=== PATIENT | male | born 1985 | race Caucasian/White ===

== ENCOUNTER 2018-10-02 16:39 | Observation (INO) | payer SELFPAY ==
--- OUTSIDE RECORDS SUMMARY | 2018-10-02 16:42 | XMS REPORT | Clinical Summary ---
:1985 Author Organization [facility] Address [address] [place] [address] Care Team Providers Name Role Phone Asked, No Pcp Primary Care Provider Unavailable Allergies Active Allergy Reactions Severity Noted Date Comments Haloperidol 09/17/2018 Dystonic reaction Medications Medication Sig Dispensed Refills Start Date End Date Status albuterol (PROAIR Inhale 2 puffs 1 Inhaler 0 09/17/2018 Active HFA,PROVENTIL every 4 (four) 8 HFA,VENTOLIN HFA) 90 hours as needed mcg/actuation inhaler for wheezing for up to 30 days. methylPREDNISolone follow package 21 tablet 0 09/17/2018 (MEDROL DOSEPAK) 4 mg directions 8 tablet Active Problems Not on file Encounters Date Type Specialty Care Team Description 09/21/2018 Emergency Emergency Medicine Naila Ríos Speech disturbance, MD Low unspecified type (Primary Dx) 09/17/2018 Emergency Emergency Medicine Inga Russ Chest pain on breathing (Primary Dx); MD Conchis Mild persistent asthma with acute exacerbation after 10/01/2017 Social History Tobacco Use Types Packs/Day Years Used Date Current Every Day Smoker Smokeless Tobacco: Never Used Alcohol Use Drinks/Week oz/Week Comments Yes Sex Assigned at Date Recorded Not on file Job Start Date Occupation Industry Not on file Not on file Not on file Travel History Travel Start Travel End No recent travel history available. Last Filed Vital Signs Vital Sign Reading Time Taken Blood Pressure 164/91 09/21/2018 12:12 PM REFRACTORY MANAGER Pulse 108 09/21/2018 12:12 PM REFRACTORY MANAGER Temperature 37.3 C (99.1 F) 09/21/2018 12:12 PM REFRACTORY MANAGER Respiratory Rate 18 09/21/2018 12:12 PM REFRACTORY MANAGER Oxygen Saturation 99% 09/21/2018 12:12 PM REFRACTORY MANAGER Inhaled Oxygen Concentration - - Weight 77.3 kg (170 lb 5 oz) 09/17/2018 4:07 PM CDT Height 177.8 cm (5' 10") 09/21/2018 12:12 PM REFRACTORY MANAGER Body Mass Index 24.44 09/17/2018 4:07 PM CDT Plan of Treatment Health Maintenance Due Date Last Done Comments MMR VACCINES (1 of 1 - Standard 1988 series) VARICELLA VACCINES (1 of 2 - 2-dose 2000 adolescent series) INFLUENZA VACCINE 06/15/2018 HEPATITIS B VACCINES Aged Out No longer eligible based on patient's age to complete this topic IPV VACCINES Aged Out No longer eligible based on patient's age to complete this topic MENINGOCOCCAL VACCINE Aged Out No longer eligible based on patient's age to complete this topic Procedures Procedure Name Priority Date/Time Associated Comments Diagnosis MRI BRAIN W WO CONTRAST STAT 09/21/2018 2:48 Results for this PM REFRACTORY MANAGER procedure are in the results section. CT STROKE BRAIN WO STAT 09/21/2018 1:33 Results for this CONTRAST PM REFRACTORY MANAGER procedure are in the results section. ESTIMATED GFR STAT 09/21/2018 12:44 Results for this PM REFRACTORY MANAGER procedure are in the results section. ALCOHOL LEVEL, BLOOD STAT 09/21/2018 12:44 Results for this PM REFRACTORY MANAGER procedure are in the results section. URINE DRUGS OF ABUSE STAT 09/21/2018 12:44 Results for this SCREEN PM REFRACTORY MANAGER procedure are in the results section. URINALYSIS SCREEN AND STAT 09/21/2018 12:44 Results for this MICROSCOPY, WITH REFLEX PM REFRACTORY MANAGER procedure are in TO CULTURE the results section. COMPREHENSIVE METABOLIC STAT 09/21/2018 12:44 Results for this PANEL PM REFRACTORY MANAGER procedure are in the results section. HC COMPLETE BLD COUNT STAT 09/21/2018 12:44 Results for this W/AUTO DIFF PM REFRACTORY MANAGER procedure are in the results section. URINE CULTURE STAT 09/21/2018 12:44 Results for this PM REFRACTORY MANAGER procedure are in the results section. B NATRIURETIC PEPTIDE Routine 09/17/2018 7:57 Results for this PM CDT procedure are in the results section. TROPONIN, I-STAT Timed 09/17/2018 7:57 Results for this PM CDT procedure are in the results section. ED REFERRAL TO [place] Routine 09/17/2018 7:27 TEMPLE PHYSICIAN PM CDT ORGANIZATION CT ANGIOGRAM PE CHEST STAT 09/17/2018 7:11 Results for this PM CDT procedure are in the results section. ECG ED PRELIMINARY Routine 09/17/2018 5:07 Results for this INTERPRETATION PM CDT procedure are in the results section. ESTIMATED GFR STAT 09/17/2018 4:50 Results for this PM CDT procedure are in the results section. TROPONIN, I-STAT STAT 09/17/2018 4:50 Results for this PM CDT procedure are in the results section. HC COMPLETE BLD COUNT STAT 09/17/2018 4:50 Results for this W/AUTO DIFF PM CDT procedure are in the results section. COMPREHENSIVE METABOLIC STAT 09/17/2018 4:50 Results for this PANEL PM CDT procedure are in the results section. XR CHEST 2 VW STAT 09/17/2018 4:41 Results for this PM CDT procedure are in the results section. after 10/01/2017 Results MRI Brain W Wo Contrast (09/21/2018 2:48 PM REFRACTORY MANAGER) Narrative Performed At EXAMINATION:MRI BRAIN W WO CONTRAST [facility] CLINICAL HISTORY:dysarthria COMPARISON:09/21/2018 Findings: No intracranial hemorrhage, acute ischemia, extra-axial fluid collections or parenchymal mass lesions. No hydrocephalus. No suspicious focal bone marrow lesions. No abnormal postcontrast enhancement. IMPRESSION: No acute intracranial abnormalities or mass lesions. [facility]-[id number] Procedure Note Hm Interface, Radiology Results Incoming - 09/21/2018 2:58 PM REFRACTORY MANAGER EXAMINATION: MRI BRAIN W WO CONTRAST CLINICAL HISTORY: dysarthria COMPARISON: 09/21/2018 Findings: No intracranial hemorrhage, acute ischemia, extra-axial fluid collections or parenchymal mass lesions. No hydrocephalus. No suspicious focal bone marrow lesions. No abnormal postcontrast enhancement. IMPRESSION: No acute intracranial abnormalities or mass lesions. [facility]-[id number] Performing Organization Address City/State/Zipcode Phone Number [facility] [address] [place] [address] CT Stroke Brain Wo Contrast (09/21/2018 1:33 PM REFRACTORY MANAGER) Narrative Performed At EXAMINATION: CT STROKE BRAIN WO CONTRAST [facility] CLINICAL HISTORY: dysarthria COMPARISON:None TECHNIQUE: Noncontrast CT of the brain was performed. Both soft tissue and bone reconstruction algorithms are interpreted. CT imaging was performed with iterative reconstruction techniques and/or automated exposure control to reduce radiation dose. FINDINGS: No acute cortical infarct is identified. No intracranial hemorrhage, extra-axial collection, mass effect or hyperdense vessel is seen. There is no acute hydrocephalus. Visualized portions of the paranasal sinuses show no air-fluid level. Mastoid air cells are clear. No fracture or aggressive bony lesion is seen. IMPRESSION: No acute intracranial abnormality identified. Findings were discussed with Dr. Cai at 09/21/2018 1:36 PM who verbalized understanding. [id number] Procedure Note Interface, Radiology Results Incoming - 09/21/2018 1:40 PM REFRACTORY MANAGER EXAMINATION: CT STROKE BRAIN WO CONTRAST CLINICAL HISTORY: dysarthria COMPARISON: None TECHNIQUE: Noncontrast CT of the brain was performed. Both soft tissue and bone reconstruction algorithms are interpreted. CT imaging was performed with iterative reconstruction techniques and/or automated exposure control to reduce radiation dose. FINDINGS: No acute cortical infarct is identified. No intracranial hemorrhage, extra- axial collection, mass effect or hyperdense vessel is seen. There is no acute hydrocephalus. Visualized portions of the paranasal sinuses show no air-fluid level. Mastoid air cells are clear. No fracture or aggressive bony lesion is seen. IMPRESSION: No acute intracranial abnormality identified. Findings were discussed with Dr. Cai at 09/21/2018 1:36 PM who verbalized understanding. [id number] Performing Organization Address City/State/Zipcode Phone Number [facility] [address] [place] [address] Urinalysis screen and microscopy, with reflex to culture (09/21/2018 12:44 PM REFRACTORY MANAGER) Specimen site Clean catch [facility] DEPARTMENT OF PATHOLOGY AND GENOMIC MEDICINE Color, UA Straw [facility] DEPARTMENT OF PATHOLOGY AND GENOMIC MEDICINE Appearance, UA Clear [facility] DEPARTMENT OF PATHOLOGY AND GENOMIC MEDICINE Specific gravity, UA 1.014 1.001 - 1.035 [facility] DEPARTMENT OF PATHOLOGY AND GENOMIC MEDICINE pH, UA 6.0 5.0 - 8.5 [facility] DEPARTMENT OF PATHOLOGY AND GENOMIC MEDICINE Protein, UA Negative Negative [facility] DEPARTMENT OF PATHOLOGY AND GENOMIC MEDICINE Glucose, UA Negative Negative [facility] DEPARTMENT OF PATHOLOGY AND GENOMIC MEDICINE Ketones, UA Negative Negative [facility] DEPARTMENT OF PATHOLOGY AND GENOMIC MEDICINE Bilirubin, UA Negative Negative [facility] DEPARTMENT OF PATHOLOGY AND GENOMIC MEDICINE Blood, UA Negative Negative [facility] DEPARTMENT OF PATHOLOGY AND GENOMIC MEDICINE Nitrite, UA Negative Negative [facility] DEPARTMENT OF PATHOLOGY AND GENOMIC MEDICINE Urobilinogen, UA <2.0 <2.0 [facility] DEPARTMENT OF PATHOLOGY AND GENOMIC MEDICINE Leukocyte esterase, UA Negative Negative [facility] DEPARTMENT OF PATHOLOGY AND GENOMIC MEDICINE WBC, UA 1 0 - 1 /HPF [facility] DEPARTMENT OF PATHOLOGY AND GENOMIC MEDICINE RBC, UA 1 0 - 5 /HPF [facility] DEPARTMENT OF PATHOLOGY AND GENOMIC MEDICINE Bacteria, UA None seen None seen [facility] DEPARTMENT OF PATHOLOGY AND GENOMIC MEDICINE Yeast, UA None seen [facility] DEPARTMENT OF PATHOLOGY AND GENOMIC MEDICINE Yeast with pseudohyphae, UA None seen [facility] DEPARTMENT OF PATHOLOGY AND GENOMIC MEDICINE Sperm, UA Few (A) [facility] DEPARTMENT OF PATHOLOGY AND GENOMIC MEDICINE Specimen Urine Performing Organization Address City/[facility] Phone Number [facility] PATHOLOGY AND [address] [place] [address] Estimated GFR (09/21/2018 12:44 PM REFRACTORY MANAGER)Only the most recent of2 resultswithin the time period is included. Estimated GFR >=90 mL/min/1.73 m2 [facility] DEPARTMENT OF Comment: PATHOLOGY AND GENOMIC CatergoryUnitsInterpretation MEDICINE G1 >=90 Normal or high G2 60-89Mildly decreased W0n73-05Uxqrjc to moderately decreased X1n13-27Ahitugpvtn to severely decreased G4 15-29Severely decreased G5 <15Kidney failure The eGFR was calculated using the Chronic Kidney Disease Epidemiology Collaboration (CKD-EPI) equation. Interpretation is based on recommendations of the National Kidney Foundation-Kidney Disease Outcomes Quality Initiative (NKF-KDOQI) published in 2014. Specimen Plasma specimen Performing Organization Address City/[facility] Cent[facility]ode Phone Number [facility] DEPARTMENT OF PATHOLOGY AND [address] [place] [id number] [facility] Urine drugs of abuse screen (09/21/2018 12:44 PM REFRACTORY MANAGER) Amphetamine screen, urine Negative [facility] DEPARTMENT OF PATHOLOGY AND GENOMIC MEDICINE Barbiturate screen, urine Negative [facility] DEPARTMENT OF PATHOLOGY AND GENOMIC MEDICINE Benzodiazepine screen, Negative [facility] DEPARTMENT OF urine PATHOLOGY AND GENOMIC MEDICINE Cannabinoid screen, urine Negative [facility] DEPARTMENT OF PATHOLOGY AND GENOMIC MEDICINE Cocaine screen, urine Negative [facility] DEPARTMENT OF PATHOLOGY AND GENOMIC MEDICINE Methadone metabolite Negative [facility] DEPARTMENT OF (EDDP), urine PATHOLOGY AND GENOMIC MEDICINE Opiates screen, urine Negative [facility] DEPARTMENT OF PATHOLOGY AND GENOMIC MEDICINE Oxycodone screen, urine Negative [facility] DEPARTMENT OF PATHOLOGY AND GENOMIC MEDICINE Phencyclidine screen, urine Negative [facility] DEPARTMENT OF PATHOLOGY AND GENOMIC MEDICINE Tricyclic screen, urine Negative [facility] DEPARTMENT OF Comment: PATHOLOGY AND GENOMIC Drug screen minimum concentration of detectability MEDICINE Sxbrvsvtybmu3097 ng/mL Barbiturates 200 ng/mL Jzqkdughkmqikyy971 ng/mL Wqvnxcg300 ng/mL Hhhfrgvwv660 ng/mL Dwptqss170 ng/mL Ijdscqtgc491 ng/mL Phencyclidine 25 ng/mL Oabtdsfdinem52 ng/mL Vaatasqngy4221 ng/mL Negative test results indicates presumptive evidence of lack of clinically significant drug concentration in this urine specimen. Positive test results are presumptive evidence of clinically significant drug concentration in this urine specimen. Testing performed for medical purposes only. Specimen Urine Performing Organization Address City/State/Zipcode Phone Number [facility] DEPARTMENT OF PATHOLOGY AND [address] [place] [address] GENOMIC MEDICINE CBC with platelet and differential (09/21/2018 12:44 PM REFRACTORY MANAGER)Only the most recent of2 resultswithin the time period is included. WBC 7.77 4.50 - 11.00 k/uL [facility] DEPARTMENT OF PATHOLOGY AND GENOMIC MEDICINE RBC 4.69 4.40 - 6.00 m/uL [facility] DEPARTMENT OF PATHOLOGY AND GENOMIC MEDICINE HGB 14.2 14.0 - 18.0 g/dL [facility] DEPARTMENT OF PATHOLOGY AND GENOMIC MEDICINE HCT 42.7 41.0 - 51.0 % [facility] DEPARTMENT OF PATHOLOGY AND GENOMIC MEDICINE MCV 91.0 82.0 - 100.0 fL [facility] DEPARTMENT OF PATHOLOGY AND GENOMIC MEDICINE MCH 30.3 27.0 - 34.0 pg [facility] DEPARTMENT OF PATHOLOGY AND GENOMIC MEDICINE MCHC 33.3 31.0 - 37.0 g/dL [facility] DEPARTMENT OF PATHOLOGY AND GENOMIC MEDICINE RDW - SD 41.8 37.0 - 55.0 fL [facility] DEPARTMENT OF PATHOLOGY AND GENOMIC MEDICINE MPV 10.9 8.8 - 13.2 fL [facility] DEPARTMENT OF PATHOLOGY AND GENOMIC MEDICINE Platelet count 273 150 - 400 k/uL [facility] DEPARTMENT OF PATHOLOGY AND GENOMIC MEDICINE Nucleated RBC 0.00 /100 WBC [facility] DEPARTMENT OF PATHOLOGY AND GENOMIC MEDICINE Neutrophils 66.2 39.0 - 69.0 % [facility] DEPARTMENT OF PATHOLOGY AND GENOMIC MEDICINE Lymphocytes 21.1 (L) 25.0 - 45.0 % [facility] DEPARTMENT OF PATHOLOGY AND GENOMIC MEDICINE Monocytes 8.5 0.0 - 10.0 % [facility] DEPARTMENT OF PATHOLOGY AND GENOMIC MEDICINE Eosinophils 3.0 0.0 - 5.0 % [facility] DEPARTMENT OF PATHOLOGY AND GENOMIC MEDICINE Basophils 0.9 0.0 - 1.0 % [facility] DEPARTMENT OF PATHOLOGY AND GENOMIC MEDICINE Immature granulocytes 0.3Comment: 0.0 - 1.0 % [facility] DEPARTMENT OF "Immature PATHOLOGY AND GENOMIC granulocytes" MEDICINE (promyelocytes, myelocytes, metamyelocytes) Specimen Blood Performing Organization Address City/[facility] Centercode Phone Number [facility] DEPARTMENT OF PATHOLOGY AND [address] [place] [address] GENOMIC MEDICINE Urine culture (09/21/2018 12:44 PM REFRACTORY MANAGER) Urine culture SEE COMMENTComment: Bacteriuria [facility] DEPARTMENT OF PATHOLOGY screen negative. AND GENOMIC MEDICINE Performing Organization Address [facility] Phone Number [facility] DEPARTMENT OF PATHOLOGY AND [address] [place] [address] GENOMIC MEDICINE Alcohol level, blood (09/21/2018 12:44 PM REFRACTORY MANAGER) Alcohol None Detected mg/dL [facility] DEPARTMENT OF PATHOLOGY Comment: AND GENOMIC MEDICINE Normal None Detected Legal Intoxication in [place]80 mg/dL (0.08%) - Whole Blood Toxic Mluqbuxpymorh571 mg/dL (0.2%) Potentially Xhpcp672 - 500 mg/dL (0.35 - 0.5%) Alcohol percent None Detected % [facility] DEPARTMENT OF PATHOLOGY AND GENOMIC MEDICINE Specimen Plasma specimen Performing Organization Address [facility] Phone Number [facility] DEPARTMENT OF PATHOLOGY AND [address] [place] [address] GENOMIC MEDICINE Comprehensive metabolic panel (09/21/2018 12:44 PM REFRACTORY MANAGER)Only the most recent of2 resultswithin the time period is included. Sodium 141 135 - 148 mEq/L [facility] DEPARTMENT OF PATHOLOGY AND GENOMIC MEDICINE Potassium 3.7 3.5 - 5.0 mEq/L [facility] DEPARTMENT OF PATHOLOGY AND GENOMIC MEDICINE Chloride 103 98 - 112 mEq/L [facility] DEPARTMENT OF PATHOLOGY AND GENOMIC MEDICINE CO2 26 24 - 31 mEq/L [facility] DEPARTMENT OF PATHOLOGY AND GENOMIC MEDICINE Anion gap 12@ANIO 7 - 15 mEq/L [facility] DEPARTMENT OF PATHOLOGY AND GENOMIC MEDICINE BUN 10 6 - 20 mg/dL [facility] DEPARTMENT OF PATHOLOGY AND GENOMIC MEDICINE Creatinine 0.97 0.70 - 1.20 mg/dL [facility] DEPARTMENT OF PATHOLOGY AND GENOMIC MEDICINE Glucose 86 65 - 99 mg/dL [facility] DEPARTMENT OF PATHOLOGY AND GENOMIC MEDICINE Calcium 9.4 8.3 - 10.2 mg/dL [facility] DEPARTMENT OF PATHOLOGY AND GENOMIC MEDICINE Protein 7.2 6.3 - 8.3 g/dL [facility] DEPARTMENT OF Comment: PATHOLOGY AND GENOMIC [place] 4.6-7.0 g/dL MEDICINE 1 week 4.4-7.6 g/dL 7 months-1year5.1-7.3 g/dL 1-2 years5.6-7.5 g/dL >3 years6.0-8.0 g/dL 18-150 6.3-8.3 g/dL Albumin 4.4 3.5 - 5.0 g/dL [facility] DEPARTMENT OF PATHOLOGY AND GENOMIC MEDICINE A/G ratio 1.6 0.7 - 3.8 [facility] DEPARTMENT OF PATHOLOGY AND GENOMIC MEDICINE Alkaline phosphatase 49 40 - 129 U/L [facility] DEPARTMENT OF PATHOLOGY AND GENOMIC MEDICINE AST 18 10 - 50 U/L [facility] DEPARTMENT OF PATHOLOGY AND GENOMIC MEDICINE ALT 21 5 - 50 U/L [facility] DEPARTMENT OF PATHOLOGY AND GENOMIC MEDICINE Total bilirubin 0.4 0.0 - 1.2 mg/dL [facility] DEPARTMENT OF PATHOLOGY AND GENOMIC MEDICINE Specimen Plasma specimen Performing Organization Address City/State/Zipcode Phone Number [facility] DEPARTMENT OF PATHOLOGY AND [address] [place] [address] [facility] Troponin, I-Stat (09/17/2018 7:57 PM CDT)Only the most recent of2 resultswithin the time period is included. Troponin, I-Stat 0.00 0.00 - 0.08 ng/mL DEPARTMENT OF Comment: PATHOLOGY AND GENOMIC 0.30 - 1.49 ng/mlMay indicate increased risk of acute [facility] coronary syndrome. [facility] >=1.5 ng/mlConsistent with acute myocardial infarction. The diagnostic value of a single normal or non-diagnostic result is questionable.Serial samples at 2-6 hour intervals are required to rule out acute myocardial injury. Specimen Plasma specimen Performing Organization Address City/State/Zipcode Phone Number DEPARTMENT OF PATHOLOGY [address] [place] [address] AND [facility] [address] [facility] B natriuretic peptide (09/17/2018 7:57 PM CDT) BNP <15 0 - 100 pg/mL [facility] Specimen Blood Performing Organization Address City/State/Zipcode Phone Number DEPARTMENT OF PATHOLOGY [address] [facility], [place] [address] [facility] [address] [facility] Angiogram Pe Chest (09/17/2018 7:11 PM CDT) Narrative Performed At EXAM: CT ANGIOGRAM PE CHEST [facility] CLINICAL HISTORY: SOB TECHNIQUE:CT angiographic images of the chest were obtained during intravenous administration of iodinated contrast.Computerized, reformatted images and 3-D MIP images were obtained and archived (per CT pulmonary embolism protocol). CT scans are performed using radiation dose reduction techniques (iterative reconstruction and/or automated exposure control). Technical factors are evaluated and adjusted to ensure appropriate moderation of exposure. Automated dose management technology is applied to adjust radiation exposure while achieving a diagnostic quality image. COMPARISON:Chest radiograph, same day FINDINGS: Pulmonary arteries: Diagnostic quality of study is adequate for the evaluation of pulmonary embolism. There is no evidence of acute or chronic pulmonary embolism. No evidence of right heart strain. The main pulmonary artery is within normal limits of size. Aorta:No aneurysm. Mediastinum and leander:No pathological adenopathy in the leander, axillary, or mediastinum.No mediastinal mass or hematoma. Heart and pericardium:Heart size is normal.No pericardial effusion. Lungs:Clear airways.No pleural effusion, pleural thickening, or pneumothorax. Other: Thyroid gland is unremarkable.Esophagus is patent. Chest wall:Unremarkable. Upper abdomen:No focal abnormality detected with limited evaluation. Bones:No evidence for acute osseous injury. IMPRESSION: 1.Negative CTA examination for pulmonary embolism. [facility]-[id number] Procedure Note Interface, Radiology Results Incoming - 09/17/2018 7:24 PM CDT EXAM: CT ANGIOGRAM PE CHEST CLINICAL HISTORY: SOB TECHNIQUE: CT angiographic images of the chest were obtained during intravenous administration of iodinated contrast. Computerized, reformatted images and 3-D MIP images were obtained and archived (per CT pulmonary embolism protocol). CT scans are performed using radiation dose reduction techniques (iterative reconstruction and/or automated exposure control). Technical factors are evaluated and adjusted to ensure appropriate moderation of exposure. Automated dose management technology is applied to adjust radiation exposure while achieving a diagnostic quality image. COMPARISON: Chest radiograph, same day FINDINGS: Pulmonary arteries: Diagnostic quality of study is adequate for the evaluation of pulmonary embolism. There is no evidence of acute or chronic pulmonary embolism. No evidence of right heart strain. The main pulmonary artery is within normal limits of size. Aorta: No aneurysm. Mediastinum and leander: No pathological adenopathy in the leander, axillary, or mediastinum. No mediastinal mass or hematoma. Heart and pericardium: Heart size is normal. No pericardial effusion. Lungs: Clear airways. No pleural effusion, pleural thickening, or pneumothorax. Other: Thyroid gland is unremarkable. Esophagus is patent. Chest wall: Unremarkable. Upper abdomen: No focal abnormality detected with limited evaluation. Bones: No evidence for acute osseous injury. IMPRESSION: 1. Negative CTA examination for pulmonary embolism. [facility]-[id number] Performing Organization Address City/State/Zipcode Phone Number [facility] [address] [place] [address] ECG ED Preliminary Interpretation - NOT AN ORDER (09/17/2018 5:07 PM CDT) Narrative Performed At [facility] MD Dony 09/19/2018 10:56 AM ECG ED Preliminary Interpretation - Not an Order Performed by: NILE HERRING Authorized by: [facility] ECG reviewed by ED Physician in the absence of a site surveyor: yes Previous ECG: Previous ECG:Unavailable Interpretation: Interpretation: abnormal Rate: ECG rate:103 bpm ECG rate assessment: tachycardic Rhythm: Rhythm: sinus rhythm Ectopy: Ectopy: none QRS: QRS axis:Left QRS intervals:Normal Conduction: Conduction: normal ST segments: ST segments:Non-specific T waves: T waves: normal XR Chest 2 Vw (09/17/2018 4:41 PM CDT) Narrative Performed At EXAMINATION:[facility]ST 2 [facility] CLINICAL HISTORY:Chest pain or SOBpleurisy or effusion suspected COMPARISON:None. IMPRESSION: The lungs are clear. The heart is not enlarged. The bony structures are within normal limits. [facility]-[id number] Procedure Note Interface, Radiology Results Incoming - 09/17/2018 4:49 PM CDT EXAMINATION: XR CHEST 2 VW CLINICAL HISTORY: Chest pain or SOB pleurisy or effusion suspected COMPARISON: None. IMPRESSION: The lungs are clear. The heart is not enlarged. The bony structures are within normal limits. [facility]-[id number] Performing Organization Address City/State/Zipcode Phone Number [id number] [place] [address] after 10/01/2017 Advance Directives Patient has advance care planning documents on file. For more information, please contact:[place] [id number] [place] [address]
[2018-10-02 17:26] LABS: Absolute Monocytes 0.6 K/uL (0.1-1.3); Absolute Neutrophil 4.3 K/uL (1.8-8.0); Eosinophils % 4.7 % (0-4.4); Hematocrit 39.8 % (39.6-49.0); Lymphocytes % 26.8 % (15.3-44.8); MCH 31.6 pg (27.0-35.0); MPV 9.3 fL (7.6-11.3); Monocytes % 8.6 % (3.3-12.3); RBC Red Blood Cell Count 4.38 M/uL (4.33-5.43)
[2018-10-02 17:31] LABS: Protime INR 0.88
--- NOTE | 2018-10-02 17:31 | RAD REPORT ---
EXAM DESCRIPTION: CT - Head Brain Wo Cont - 10/02/2018 5:18 pm CLINICAL HISTORY: speech problem CVA, drowsiness COMPARISON: No comparisons TECHNIQUE: All CT scans are performed using dose optimization technique as appropriate and may inclu de automated exposure control or mA/KV adjustment according to patient size. FINDINGS: No intracranial hemorrhage, hydrocephalus or extra-axial fluid collection.No areas of brai n edema or evidence of midline shift. The paranasal sinuses and mastoids are clear. The calvarium is intact. IMPRESSION: No acute intracranial abnormality.
[2018-10-02 17:43] LABS: Arterial Blood Carboxyhemoglob 2.2 % (0-1.5); Blood Gas Oxyhemoglobin 94.7 % (94-97); Blood O2 Saturation 98.1 % (92-98.5)
[2018-10-02 17:48] LABS: ALT/SGPT 21 U/L (12-78); AST/SGOT 14 U/L (15-37); Alkaline Phosphatase 61 U/L (45-117); BUN Blood Urea Nitrogen 16 mg/dL (7-18); Bicarbonate 22 mmol/L (21-32); Bilirubin Direct < 0.1 mg/dL (0-0.2); Bilirubin Total 0.3 mg/dL (0.2-1.0); Glucose Level 89 mg/dL (74-106); Phosphorus 1.5 mg/dL (2.5-4.9); Protein, Total 7.1 g/dL (6.4-8.2); Sodium Level 140 mmol/L (136-145)
[2018-10-02 18:03] LABS: Folic Acid, (Folate) 9.5 ng/mL (3.1-17.5)
[2018-10-02] MEDS ORDERED: SODIUM PHOSPHATE IV ONE (19:00)
[2018-10-02] MEDS ORDERED: NA CHLORIDE IV ONE (19:00)
--- NOTE | 2018-10-02 19:16 | EDPHYS ---
Physician Documentation [facility] Name: Leif Mcfadden Age: 33 yrs Sex: Male : 1985 Arrival Date: 10/02/2018 Time: 16:44 Bed 16 Private MD: ED Physician Andres Mike HPI: 10/02 16:57 This 33 yrs old Male presents to ER via EMS with complaints of Altered Mental Status. snw 16:57 The patient presents with difficult speech pattern that has changed and worsened over snw the past three weeks. 17:18 Onset: The symptoms/episode began/occurred gradually, 3 week(s) ago, and became snw persistent. Possible causes: unknown. Associated signs and symptoms: Pertinent positives: speech pattern changes, tic like movements,. Current symptoms: In the emergency department the patient's symptoms are unchanged from the initial presentation. Patient's baseline: Neuro: alert and fully oriented, Motor: no deficits, Ambulation: walks without assistance, Speech: normal. It is unknown whether or not the patient has had similar symptoms in the past. The patient has been recently seen by a physician: Roberto Carlos Gilliam and Surek[facility]. Historical: - Allergies: 16:57 SHELLFISH; ph - PMHx: 16:57 Asthma; ph - Immunization history:: Adult Immunizations unknown. - Social history:: Smoking status: unknown. - Ebola Screening: : No symptoms or risks identified at this time. ROS: 17:25 Constitutional: Negative for fever, chills, and weight loss, Eyes: Negative for injury, snw pain, redness, and discharge, ENT: Negative for injury, pain, and discharge, Neck: Negative for injury, pain, and swelling, Cardiovascular: Negative for chest pain, palpitations, and edema, Respiratory: Negative for shortness of breath, cough, wheezing, and pleuritic chest pain, Abdomen/GI: Negative for abdominal pain, nausea, vomiting, diarrhea, and constipation, Back: Negative for injury and pain, : Negative for injury, bleeding, discharge, and swelling, MS/Extremity: Negative for injury and deformity, Skin: Negative for injury, rash, and discoloration. 17:25 Neuro: Positive for speech changes. 17:25 Psych: Positive for anxiety. Exam: 17:27 Constitutional: This is a well developed, well nourished patient who is awake, alert, snw and in no acute distress. Head/Face: Normocephalic, atraumatic. Eyes: Pupils equal round and reactive to light, extra-ocular motions intact. Lids and lashes normal. Conjunctiva and sclera are non-icteric and not injected. Cornea within normal limits. Periorbital areas with no swelling, redness, or edema. ENT: Nares patent. No nasal discharge, no septal abnormalities noted. Tympanic membranes are normal and external auditory canals are clear. Oropharynx with no redness, swelling, or masses, exudates, or evidence of obstruction, uvula midline. Mucous membranes moist. Neck: Trachea midline, no thyromegaly or masses palpated, and no cervical lymphadenopathy. Supple, full range of motion without nuchal rigidity, or vertebral point tenderness. No Meningismus. Chest/axilla: Normal chest wall appearance and motion. Nontender with no deformity. No lesions are appreciated. Cardiovascular: Regular rate and rhythm with a normal S1 and S2. No gallops, murmurs, or rubs. Normal PMI, no JVD. No pulse deficits. Respiratory: Lungs have equal breath sounds bilaterally, clear to auscultation and percussion. No rales, rhonchi or wheezes noted. No increased work of breathing, no retractions or nasal flaring. Abdomen/GI: Soft, non-tender, with normal bowel sounds. No distension or tympany. No guarding or rebound. No evidence of tenderness throughout. Back: No spinal tenderness. No costovertebral tenderness. Full range of motion. Skin: Warm, dry with normal turgor. Normal color with no rashes, no lesions, and no evidence of cellulitis. MS/ Extremity: Pulses equal, no cyanosis. Neurovascular intact. Full, normal range of motion. Psych: Awake, alert, with orientation to person, place and time. Behavior, mood, and affect are within normal limits. 17:27 Neuro: Orientation: appropriate for stated age, Mentation: appropriate for stated age, Memory: appropriate for stated age, Cranial nerves: Nystagmus is absent. Speech is dysarthric, slowed, Gag reflex present. Tongue strength is normal, Motor: Hypertonic in scalp. Sensation: is normal, Gait: not tested. seizure activity, is not displayed by the patient, Abnormal movements: stiff movements. Vital Signs: 16:55 BP 140 / 93; Pulse 85; Resp 18; Temp 98.0(TE); Pulse Ox 100% on R/A; Pain 0/10; ph 17:48 BP 122 / 77; Pulse 82; Resp 18; Pulse Ox 100% on R/A; ph 19:10 BP 131 / 84; Pulse 80; Resp 18; Pulse Ox 100% on R/A; ph 20:28 BP 123 / 93; Pulse 72; Resp 16; Pulse Ox 99% ; jb4 NIH Stroke Scale Scores: 17:49 NIHSS Score: 1 ph MDM: 17:11 Patient medically screened. snw 19:13 Data reviewed: vital signs, nurses notes. Data interpreted: Pulse oximetry: on room air snw is 100 %. Interpretation: normal. Counseling: I had a detailed discussion with the patient and/or guardian regarding: the historical points, exam findings, and any diagnostic results supporting the discharge/admit diagnosis, the presence of at least one elevated blood pressure reading (>120/80) during this emergency department visit, lab results, radiology results, the need for further work-up and treatment in the hospital. Physician consultation: Dillan Brady MD was called at 19:13, was contacted at 19:13, regarding admission, and will see patient in ED. 19:20 Physician consultation: Edward Wagoner MD was called at 19:20, was contacted at 19:20, snw regarding consult, outpatient follow-up, in 2-3 days, will see pt in his office as needed. 10/02 16:54 Order name: Acetaminophen; Complete Time: 18:04 snw 10/02 16:54 Order name: Basic Metabolic Panel; Complete Time: 18:04 snw 10/02 16:54 Order name: CBC with Diff; Complete Time: 17:46 snw 10/02 16:54 Order name: ETOH Level; Complete Time: 17:50 snw 10/02 16:54 Order name: Hepatic Function; Complete Time: 18:04 snw 10/02 16:54 Order name: PT-INR; Complete Time: 17:46 snw 10/02 16:54 Order name: Ptt, Activated; Complete Time: 17:46 snw 10/02 16:54 Order name: Salicylate; Complete Time: 17:46 snw 10/02 16:54 Order name: Urine Drug Screen; Complete Time: 20:22 snw 10/02 16:54 Order name: B12; Complete Time: 18:04 snw 10/02 16:54 Order name: Folic Acid,Serum (folate); Complete Time: 18:04 snw 10/02 16:54 Order name: Blood Culture* snw 10/02 16:54 Order name: Urine Culture [facility] 10/02 16:54 Order name: Phosphorus; Complete Time: 18:04 snw 10/02 16:54 Order name: EKG; Complete Time: 16:55 snw 10/02 16:54 Order name: EKG - Nurse/Tech; Complete Time: 17:47 snw 10/02 16:54 Order name: IV Saline Lock; Complete Time: 17:47 snw 10/02 16:54 Order name: Labs collected and sent; Complete Time: 17:47 snw 10/02 16:54 Order name: Urine Dipstick-Ancillary (obtain specimen); Complete Time: 20:03 snw 10/02 16:54 Order name: CT Head Brain wo Cont; Complete Time: 17:34 snw 10/02 16:54 Order name: Magnesium; Complete Time: 18:04 snw 10/02 16:54 Order name: TSH; Complete Time: 18:04 snw 10/02 16:54 Order name: ABG; Complete Time: 18:00 snw 10/02 18:04 Order name: Misc. Order: 40mmol NaPhos IV in 250ml NS to infuse over 6 hours; Complete snw Time: 18:17 10/02 18:09 Order name: Misc. Lab Test; Complete Time: 21:07 snw 10/02 19:58 Order name: Urine Dipstick--Ancillary (enter results) 2 10/02 20:13 Order name: Urinalysis; Complete Time: 20:16 EDMS 10/02 20:26 Order name: Urine Dipstick-Ancillary; Complete Time: 20:26 EDMS Administered Medications: 18:45 Drug: NS 0.9% 250 ml Route: IV; Rate: calculated rate; Site: left antecubital; ph 21:20 Follow up: Response: No adverse reaction; IV Status: Infusion continued upon admission jb4 Disposition: 10/03 11:14 Co-signature as Attending Physician, Andres Mike MD. gs Disposition: 10/02/18 19:15 Hospitalization ordered by Dillan Brady for Observation. Preliminary diagnosis are Dysarthria and anarthria, Hypophosphatemia. - Bed requested for Telemetry/MedSurg (observation). - Status is Observation. jb4 - Condition is Stable. - Problem is an ongoing problem. - Symptoms are unchanged. UTI on Admission? No NIH Stroke Scale - NIH Stroke Score Date: 10/02/2018 Time: 17:49 Total Score = 1 1a. Level of Consciousness (LOC) - 0(Alert) 1b. Level of Consciousness (LOC) (Year \T\ Age) - 0(Both) 1c. LOC Commands (Open \T\ Closes Eyes/Security Attendant) - 0(Both) 2. Best Gaze (Lateral Gaze Paresis) - 0(Normal) 3. Visual Field Loss - 0(No visual loss) 4. Facial Palsy - 0(Normal) 5a. Left Arm: Motor (10-second hold) - 0(No drift) 5b. Right Arm: Motor (10-second hold) - 0(No drift) 6a. Left Leg: Motor (5-second hold - always test supine) - 0(No drift) 6b. Right Leg: Motor (5-second hold - always test supine) - 0(No drift) 7. Limb Ataxia (finger/nose \T\ heel/amador - test with eyes open) - 0(Absent) 8. Sensory Loss (pinprick arms/legs/face) - 0(Normal) 9. Best Language: Aphasia (description/naming/reading) - 0(No aphasia) 10. Dysarthria (speech clarity - read or repeat words) - 1(Mild to Moderate) 11. Extinction and Inattention (visual/tactile/auditory/spatial/personal) - 0(No abnormality) Initials: ph Signatures: Dispatcher [employer] Liv Kilpatrick RN RN kl Therrien, Shelly, PYTHON ENGINEER-C PYTHON ENGINEER-Csnw Lauren Jarquin RN RN ph Bryson, James, RN RN jb4 Andres Mike MD MD Corrections: (The following items were deleted from the chart) 10/02 20:25 19:15 Hospitalization Ordered by Dillan Brady MD for Observation. Preliminary kl diagnosis is Dysarthria and anarthria; Hypophosphatemia. Bed requested for Telemetry/MedSurg (observation). Status is Observation. Condition is Stable. Problem is an ongoing problem. Symptoms are unchanged. UTI on Admission? No. snw 21:41 20:25 10/02/2018 19:15 Hospitalization Ordered by Dillan Brady MD for jb4 Observation. Preliminary diagnosis is Dysarthria and anarthria; Hypophosphatemia. Bed requested for Telemetry/MedSurg (observation). Status is Observation. Condition is Stable. Problem is an ongoing problem. Symptoms are unchanged. UTI on Admission? No. kl
--- NOTE | 2018-10-02 19:16 | ER ---
Nurse's Notes [facility] Name: Leif Mcfadden Age: 33 yrs Sex: Male : 1985 Arrival Date: 10/02/2018 Time: 16:44 Bed 16 Private MD: Diagnosis: Dysarthria and anarthria;Hypophosphatemia Presentation: 10/02 16:47 Presenting complaint: EMS states: Pt presents w/ difficulty speaking, SO reports that ph approx 3 weeks ago pt began experienced a headache, difficulty speaking, difficulty walking, and disorientation, was seen at [facility] for complaint and had CT, MRI and blood work done which was all normal and pt dx w/ aphasia. SO reports that symptoms improved slightly after d/c but pt still had difficulty speaking, reading and writing. 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 Transition of care: patient was not received from another setting of care. Onset of symptoms was October 02, 2018. Risk Assessment: Do you want to hurt yourself or someone else? Patient reports no desire to harm self or others. Initial Sepsis Screen: Does the patient meet any 2 criteria? Altered Mental Status. No. Patient's initial sepsis screen is negative. Does the patient have a suspected source of infection? No. Patient's initial sepsis screen is negative. Care prior to arrival: Glucose check: 105. 16:47 Method Of Arrival: EMS: [facility] ph 16:47 Acuity: ROSAS 2 ph Historical: - Allergies: 16:57 SHELLFISH; ph - PMHx: 16:57 Asthma; ph - Immunization history:: Adult Immunizations unknown. - Social history:: Smoking status: unknown. - Ebola Screening: : No symptoms or risks identified at this time. Screenin:58 Abuse screen: Denies threats or abuse. Denies injuries from another. Nutritional ph screening: No deficits noted. Tuberculosis screening: No symptoms or risk factors identified. Fall Risk None identified. Assessment: 17:05 General: Appears in no apparent distress. uncomfortable, slender, Behavior is calm, ph cooperative, appropriate for age. Pain: Denies pain. Neuro: Level of Consciousness is awake, alert, obeys commands, Oriented to person, place, time, situation, Coagulating Drying Supervisor are equal bilaterally Moves all extremities. Gait is unsteady, Speech dysarthric speech. Facial symmetry appears normal, Facial symmetry: tongue is midline, Pupils are PERRLA, Intact Reports difficulty swallowing dizziness, Denies numbness. Cardiovascular: Reports lightheadedness, shortness of breath, Denies chest pain, nausea, palpitations, Capillary refill < 3 seconds in bilateral fingers Patient's skin is warm and dry. Respiratory: Reports shortness of breath at rest Airway is patent Respiratory effort is even, unlabored, Respiratory pattern is regular, symmetrical, Breath sounds are clear bilaterally. GI: No signs and/or symptoms were reported involving the gastrointestinal system. Derm: Skin is intact, is fragile, Skin is pink, warm \T\ dry. Musculoskeletal: Circulation, motion, and sensation intact. Range of motion: intact in all extremities, noted to have jerky, rigid, movements. 17:11 Reassessment: Pt to CT VIA stretcher. 17:47 Reassessment: Patient appears in no apparent distress at this time. Patient and/or ph family updated on plan of care and expected duration. Pain level reassessed. Patient is alert, oriented x 3, equal unlabored respirations, skin warm/dry/pink. Mike at bedside to speak w/ pt. 19:00 Reassessment: Patient appears in no apparent distress at this time. Patient and/or jb4 family updated on plan of care and expected duration. Pain level reassessed. Patient is alert, oriented x 3, equal unlabored respirations, skin warm/dry/pink. 19:00 Cardiovascular: Patient's skin is warm and dry. Respiratory: Airway is patent jb4 Respiratory effort is even, unlabored, Respiratory pattern is regular, symmetrical. 20:28 Reassessment: Patient appears in no apparent distress at this time. Patient and/or jb4 family updated on plan of care and expected duration. Pain level reassessed. Patient is alert, oriented x 3, equal unlabored respirations, skin warm/dry/pink. 20:47 Reassessment: attempted to call report, put on hold for 5 minutes. Was instructed to jb4 wait for a call back. 21:20 Reassessment: Patient appears in no apparent distress at this time. Patient and/or jb4 family updated on plan of care and expected duration. Pain level reassessed. Patient is alert, oriented x 3, equal unlabored respirations, skin warm/dry/pink. Vital Signs: 16:55 BP 140 / 93; Pulse 85; Resp 18; Temp 98.0(TE); Pulse Ox 100% on R/A; Pain 0/10; ph 17:48 BP 122 / 77; Pulse 82; Resp 18; Pulse Ox 100% on R/A; ph 19:10 BP 131 / 84; Pulse 80; Resp 18; Pulse Ox 100% on R/A; ph 20:28 BP 123 / 93; Pulse 72; Resp 16; Pulse Ox 99% ; jb4 NIH Stroke Scale Scores: 17:49 NIHSS Score: 1 ph ED Course: 16:44 Patient arrived in ED. ss 16:47 Lauren Jarquin, RN is Primary Nurse. ph 16:49 Zhane Guajardo FNP-C [facility]. snw 16:49 Andres Mike MD is Attending Physician. snw 16:55 Triage completed. ph 16:58 Arm band placed on. ph 16:58 Patient has correct armband on for positive identification. Bed in low position. Call ph light in reach. Side rails up X2. quality assurance monitor on. Pulse ox on. NIBP on. Warm blanket given. 17:00 Inserted saline lock: 20 gauge in left antecubital area, using aseptic technique. ph 17:19 CT Head Brain wo Cont In Process Unspecified. EDMS 18:57 No provider procedures requiring assistance completed. Patient admitted, IV remains in ph place. 19:14 Dillan Brady MD is Hospitalizing Provider. snw 21:41 Primary Nurse role handed off by Lauren Jarquin RN jb4 21:41 Avni Benavidez RN is Primary Nurse. jb4 Administered Medications: 18:45 Drug: NS 0.9% 250 ml Route: IV; Rate: calculated rate; Site: left antecubital; ph 21:20 Follow up: Response: No adverse reaction; IV Status: Infusion continued upon admission jb4 Outcome: 19:15 Decision to Hospitalize by Provider. snw 21:20 Admitted to Med/surg accompanied by tammy, via wheelchair, room 219, with chart, Report jb4 called to HUMBERTO Bland 21:20 Condition: stable 21:20 Discharge instructions given to patient, Instructed on the need for admit, Demonstrated understanding of instructions. 21:41 Patient left the ED. jb4 NIH Stroke Scale - NIH Stroke Score Date: 10/02/2018 Time: 17:49 Total Score = 1 1a. Level of Consciousness (LOC) - 0(Alert) 1b. Level of Consciousness (LOC) (Year \T\ Age) - 0(Both) 1c. LOC Commands (Open \T\ Closes Eyes/Anesthesiology Faculty) - 0(Both) 2. Best Gaze (Lateral Gaze Paresis) - 0(Normal) 3. Visual Field Loss - 0(No visual loss) 4. Facial Palsy - 0(Normal) 5a. Left Arm: Motor (10-second hold) - 0(No drift) 5b. Right Arm: Motor (10-second hold) - 0(No drift) 6a. Left Leg: Motor (5-second hold - always test supine) - 0(No drift) 6b. Right Leg: Motor (5-second hold - always test supine) - 0(No drift) 7. Limb Ataxia (finger/nose \T\ heel/amador - test with eyes open) - 0(Absent) 8. Sensory Loss (pinprick arms/legs/face) - 0(Normal) 9. Best Language: Aphasia (description/naming/reading) - 0(No aphasia) 10. Dysarthria (speech clarity - read or repeat words) - 1(Mild to Moderate) 11. Extinction and Inattention (visual/tactile/auditory/spatial/personal) - 0(No abnormality) Initials: ph Signatures: Dispatcher [employer] EDZhane Joel, RETA-C TAX EXPERT-Csnw Eugenia Osei RN RN ss Hall, Patricia, RN RN ph Bryson, James, RN RN jb4
[2018-10-02 20:12] LABS: Urine Appearance CLEAR; Urine Bilirubin NEGATIVE (NEG); Urine Blood NEGATIVE (NEG); Urine Color YELLOW; Urine Glucose NEGATIVE (NEG); Urine Protein NEGATIVE (NEG); Urine Specific Gravity 1.015 (1.005-1.030); Urine Urobilinogen 0.2 mg/dL (0.2-1.0)
[2018-10-02 20:13] LABS: Urine Microscopic Reflex NO UMIC
--- NOTE | 2018-10-02 20:20 | EKG ---
Test Date: 2018-10-02 Test Time: 16:55:39 Electrical Instrument Maker: ALEIDA MEASUREMENT RESULTS: Intervals: Rate: 79 SC: 134 QRSD: 88 QT: 332 QTc: 380 Kirwin: P: 72 SC: 134 QRS: 69 T: 54 INTERPRETIVE STATEMENTS: Sinus rhythm with marked sinus arrhythmia Otherwise normal ECG No previous ECG available for comparison Electronically Signed On 10-02-18 20:19:35 INSURANCE SALES ASSOCIATE by Luis Angel Rodriguez
[2018-10-02 20:21] LABS: Barbiturates NEGATIVE (NEGATIVE); Benzodiazepines NEGATIVE (NEGATIVE); Cocaine NEGATIVE (NEGATIVE); METHAMPHETAM NEGATIVE (NEGATIVE); Methadone NEGATIVE (NEGATIVE); Opiates NEGATIVE (NEGATIVE); Phencyclidine NEGATIVE (NEGATIVE); THC Cannibis NEGATIVE (NEGATIVE)
[2018-10-02 20:26] LABS: Urine Blood NEGATIVE (NEG); Urine Glucose NEGATIVE (NEG); Urine Protein NEGATIVE (NEG)
--- NOTE | 2018-10-02 21:00 | P.HP ---
Certification for Inpatient Patient admitted to: Observation With expected LOS: <2 Midnights Practitioner: I am a practitioner with admitting privileges, knowledge of patient current condition, hospital course, and medical plan of care. Services: Services provided to patient in accordance with Admission requirements found in Title 42 Section 412.3 of the Code of Federal Regulations Patient History Date of Service: 10/02/18 Reason for admission: hypophosphatemia History of Present Illness: Mr Mcfadden 73-year-old male who start about 3 weeks ago with dysarthria, generalize weakness and confusion he was admitted to [facility], was evaluated by neurologist, workup with CT scan and MRI of the brain with normal report, he was diagnosed with ataxic speech and he was referred to [facility] speech therapy. Subsequently he went to [facility] for 2nd opinion and basically had the same diagnosis. Today he came to the hospital because start with dysartria again. There is no focal neurologic deficit. CT head the report not acute abnormality. Laboratory work remarkable for hypophosphatemia 1.5. Other ways is pretty much unremarkable. At the time of my examination, the patient was talking normal without obvious dysarthria. Allergies shellfish derived Allergy (Verified 10/02/18 19:42) Itching/Hives/Rash - Past Medical/Surgical History -: asthma Past Surgical History: Reviewed- Non-Contributory - Family History Father -: Stroke - Social History Alcohol use: Yes Place of Residence: Home Review of Systems 10-point ROS is otherwise unremarkable Physical Examination - Physical Exam General: Alert, In no apparent distress HEENT: Atraumatic, PERRLA, Mucous membr. moist/pink, EOMI, Sclerae nonicteric Neck: Supple, 2+ carotid pulse no bruit, No LAD, Without JVD or thyroid abnormality Respiratory: Clear to auscultation bilaterally, Normal air movement Cardiovascular: Regular rate/rhythm, Normal S1 S2 Gastrointestinal: Normal bowel sounds, No tenderness Musculoskeletal: No tenderness Integumentary: No rashes Neurological: Normal speech (My examination, previously he was dysarthric per ER staff), Normal strength at 5/5 x4 extr, Normal tone, Normal affect Lymphatics: No axilla or inguinal lymphadenopathy - Studies Laboratory Data (last 24 hrs) 10/02/18 16:54: PT 10.4, INR 0.88, APTT 29.1 10/02/18 16:54: WBC 7.4, Hgb 13.8, Hct 39.8, Plt Count 284 10/02/18 16:54: Sodium 140, Potassium 4.0, BUN 16, Creatinine 1.30, Glucose 89, Phosphorus 1.5 L, Magnesium 2.0, Total Bilirubin 0.3, AST 14 L, ALT 21, Alkaline Phosphatase 61 Assessment and Plan - Problems (Diagnosis) (1) Hypophosphatemia Current Visit: Yes Status: Acute (2) Dysarthria Current Visit: Yes Status: Acute - Plan The patient will be admitted to the hospital due to hypophosphatemia in order to replace by protocol. There is no clear explanation for his neurologic symptoms, however he states that after start phosphate infusion, he is feeling better. Dr. Wagoner was constant from ER, and he recommends follow-up as outpatient in his office. - Advance Directives Does patient have a Living Will: No Does patient have a Durable POA for Healthcare: No
[2018-10-02] MEDS ORDERED: ONDANSETRON 4 MG/2 ML VIAL IV PRN (21:13)
[2018-10-03 06:00] LABS: Phosphorus 2.4 mg/dL (2.5-4.9); Potassium 3.6 mmol/L (3.5-5.1)
[2018-10-03] MEDS ORDERED: POTASSIUM 25 MEQ EFFERV TAB PO SCH (09:00)
[2018-10-03] MEDS ORDERED: ENOXAPARIN 40 MG/0.4 ML SQ SCH (09:00)
[2018-10-03] MEDS: POTASS/SODIUM PHOSPHATE 1 PKT POWD.PACK PO SCH ×2 (09:44→10:00)
--- NOTE | 2018-10-03 13:30 | P.SSS ---
Patient History Date of Service: 10/03/18 Reason for admission: hypophosphatemia History of Present Illness: Mr Mcfadden 73-year-old male who start about 3 weeks ago with dysarthria, generalize weakness and confusion he was admitted to [facility], was evaluated by neurologist, workup with CT scan and MRI of the brain with normal report, he was diagnosed with ataxic speech and he was referred to [facility] speech therapy. Subsequently he went to [facility] for 2nd opinion and basically had the same diagnosis. Today he came to the hospital because start with dysartria again. There is no focal neurologic deficit. CT head the report not acute abnormality. Laboratory work remarkable for hypophosphatemia 1.5. Other ways is pretty much unremarkable. At the time of my examination, the patient was talking normal without obvious dysarthria. Allergies shellfish derived Allergy (Verified 10/02/18 19:42) Itching/Hives/Rash haloperidol [From Haldol] Adverse Reaction (Verified 10/02/18 22:35) Anaphylaxis Home Medications: NK [No Home Meds] 10/02/18 - Past Medical/Surgical History Has patient received pneumonia vaccine in the past: No Diabetic: No -: asthma - Family History Father History Unknown: Yes -: Stroke - Social History Smoking Status: Current every day smoker Alcohol use: Yes CD- Drugs: No Caffeine use: Yes Place of Residence: Home Review of Systems As noted Physical Examination - Vital Signs Temperature: 99 F Blood Pressure: 123/68 Pulse: 74 Respirations: 16 Pulse Ox (%): 99 - Physical Exam General: Alert, In no apparent distress, Oriented x3 HEENT: Atraumatic, PERRLA, Mucous membr. moist/pink, EOMI, Sclerae nonicteric Neck: Supple, 2+ carotid pulse no bruit, No LAD, Without JVD or thyroid abnormality Respiratory: Clear to auscultation bilaterally, Normal air movement Cardiovascular: Regular rate/rhythm, Normal S1 S2 Gastrointestinal: Normal bowel sounds, No tenderness Musculoskeletal: No tenderness Integumentary: No rashes Neurological: Normal gait, Normal speech, Normal strength at 5/5 x4 extr, Normal tone, Normal affect Lymphatics: No axilla or inguinal lymphadenopathy - Studies Laboratory Data (last 24 hrs) 10/02/18 16:54: PT 10.4, INR 0.88, APTT 29.1 10/02/18 16:54: WBC 7.4, Hgb 13.8, Hct 39.8, Plt Count 284 10/02/18 16:54: Sodium 140, Potassium 4.0, BUN 16, Creatinine 1.30, Glucose 89, Phosphorus 1.5 L, Magnesium 2.0, Total Bilirubin 0.3, AST 14 L, ALT 21, Alkaline Phosphatase 61 Treatment Summary: Patient was admitted for observation overnight. He was noted to have hypophosphatemia, repleted. At the time of my exam, no abnormal speech or other abnormalities noted. Patient sitting in bed laughing with friend that was present in the room and he was ready to go home. Stated that he has been [place] meeting at 1 o'clock and he needed to get out of here as soon as possible. He was alert oriented x3, vital signs were stable. He was discharged safely with information to follow up on outpatient. He was given a list of primary care physicians in the area so he could call make an appointment. All questions were answered. Patient verbalized understanding. - Disposition Disposition: ROUTINE DISCHARGE Condition: GOOD Patient Discharge Instructions: Please follow up with primary care physician ( list provided to you) in 1-2 weeks. Diet: Regular Activity: Ad ricki Physician Review: Patient Assessed, Agree with Above Assessment and Plan Time Spent Managing Pts Care (In Minutes): 45
== END 2018-10-03 11:40 | disposition home or self-care (01) ==
LOC: ER 16:39 → ERHOLD 19:20 → 2ND 21:06
PROVIDERS: ADMIT Internal Medicine; ATTEND Internal Medicine
DX: E83.39 Other disorders of phosphorus metabolism (principal); R47.1 Dysarthria and anarthria; Z91.013 Allergy to seafood; F17.210 Nicotine dependence, cigarettes, uncomplicated
CPT/HCPCS: 36415; 70450; 80048; 80076; 80307; 80320; 80329; 81003; 82607; 82746; 82805; 82962; 83735; 84100; 84443; 85025; 85610; 85730; 87040; 87086; 87088; 93005; 96360; 96361; 99285; G0378; J1650